=== PATIENT | female | born 1980 | race Caucasian/White ===

== ENCOUNTER 2016-12-29 16:43 | Emergency (ER) | payer OTHER ==
[~2016-12-29] VITALS: Ht 162.6 cm; Wt 57.4 kg
[~2016-12-29 16:43] MED LIST: ATARAX,VISTARIL25 MG PO; BUPRENORPHINE HC2 MG SL; IBUPROFEN800 MG PO; Subutex SL; ZOFRAN8 MG PO
[2016-12-29 17:19] LABS: HEMATOCRIT 35.9 % (36.0-46.0); MCHC 30.1 G/DL (30.0-36.0); MCV 73.1 FL (83-99); MEAN PLAT.VOLUME 9.7 uM^3 (9.5-12.4); PLATELET COUNT 248 K/uL (156-360); RBC DIS.WIDTH-CV 14.8 % (11.8-14.6); RBC DIS.WIDTH-SD 39.1 % (39-53); RED BLOOD COUNT 4.91 M/uL (3.80-5.20); WHITE BLOOD COUNT 7.7 K/uL (4.1-10.2)
[2016-12-29 17:22] LABS: CHLORIDE 103 mEq/L (99-109); POTASSIUM 3.5 mEq/L (3.7-5.4); SODIUM 136 mEq/L (136-147)
[2016-12-29 17:24] LABS: GLUCOSE 98 mg/dL (70-99)
[2016-12-29 17:25] LABS: ANION GAP 12 MEQ/L (2-14)
[2016-12-29 17:27] LABS: SERUM ETHYL ALCOHOL < 10 mg/dL
[2016-12-29 17:28] LABS: GFR ESTIMATE (CALCULATED) > 59 mL/min/
[2016-12-29 17:29] LABS: UREA NITROGEN (BUN) 16 mg/dL (9-23)
[2016-12-29 17:30] LABS: CREATINE KINASE 182 IU/L (1-294); TOTAL CK 182 IU/L (1-294)
[2016-12-29 17:37] LABS: QUANTITATIVE HCG < 4.0 MIU/ML
[2016-12-29 17:38] LABS: CK-MB 4.8 ng/mL (0.0-4.9)
[2016-12-29 18:03] VITALS: BP 133/82
== END 2016-12-29 18:27 | disposition home or self-care (01) ==
LOC: EME 16:43
PROVIDERS: Emergency Medicine
DX: F31.30 Bipolar disorder, current episode depressed, mild or moderate severity, unspecified (principal); S80.812A Abrasion, left lower leg, initial encounter; S80.811A Abrasion, right lower leg, initial encounter; X58.XXXA Exposure to other specified factors, initial encounter; F90.2 Attention-deficit hyperactivity disorder, combined type; F17.200 Nicotine dependence, unspecified, uncomplicated
CPT/HCPCS: 80048; 82550; 82553; 83605; 84702; 85027; 90837; 99281; 99284; G0480

== ENCOUNTER 2017-06-04 17:08 | Emergency (ER) | payer OTHER ==
[~2017-06-04] VITALS: Ht 162.6 cm; Wt 61.1 kg
[2017-06-04] MEDS ORDERED: BACTRIM,SEPT1 TABLET PO (19:09)
[2017-06-04] MEDS ORDERED: NORCO 5/3251 TABLET PO (19:09)
[2017-06-04 20:31] VITALS: BP 132/70
== END 2017-06-04 20:32 | disposition home or self-care (01) ==
LOC: EME 17:08
PROC: 0H9AXZZ Drainage of Inguinal Skin, External Approach (ICD-10-PCS; principal; 2017-06-04)
DX: L02.214 Cutaneous abscess of groin (principal); Z91.040 Latex allergy status; Z88.8 Allergy status to other drugs, medicaments and biological substances
CPT/HCPCS: 99281; 99283

== ENCOUNTER 2017-06-12 11:40 | Emergency (ER) | payer OTHER ==
[~2017-06-12] VITALS: Ht 162.6 cm; Wt 58.3 kg
[~2017-06-12 11:40] MED LIST changes: +BACTRIM,SEPT1 TABLET PO; +NORCO 5/3251 TABLET PO
[2017-06-12 12:36] LABS: HEMATOCRIT 41.2 % (36.0-46.0); MCH 26.8 PG (29.0-34.0); MCHC 32.5 G/DL (30.0-36.0); MCV 82.4 FL (83-99); MEAN PLAT.VOLUME 9.9 uM^3 (9.5-12.4); PLATELET COUNT 208 K/uL (156-360); RBC DIS.WIDTH-CV 13.5 % (11.8-14.6); RBC DIS.WIDTH-SD 40.4 % (39-53); WHITE BLOOD COUNT 5.6 K/uL (4.1-10.2)
[2017-06-12 12:47] LABS: CHLORIDE 107 mEq/L (99-109); POTASSIUM 4.5 mEq/L (3.7-5.4); SODIUM 143 mEq/L (136-147)
[2017-06-12 12:49] LABS: GLUCOSE 98 mg/dL (70-99)
[2017-06-12 12:51] LABS: ANION GAP 9 MEQ/L (2-14)
[2017-06-12 12:53] LABS: GFR ESTIMATE (CALCULATED) > 59 mL/min/
[2017-06-12 12:54] LABS: UREA NITROGEN (BUN) 15 mg/dL (9-23)
[2017-06-12] MEDS ORDERED: VIBRAMYCIN100 MG PO (13:17)
[2017-06-12] MEDS ORDERED: VENTOLIN HFA18 GM IH (13:18)
[2017-06-12 13:47] LABS: QUANTITATIVE HCG < 4.0 MIU/ML
[2017-06-12 14:09] VITALS: BP 89/64
== END 2017-06-12 14:12 | disposition home or self-care (01) ==
LOC: EME 11:40 → RME 11:40
DX: J40 Bronchitis, not specified as acute or chronic (principal); F90.9 Attention-deficit hyperactivity disorder, unspecified type; F32.9 Major depressive disorder, single episode, unspecified; F31.9 Bipolar disorder, unspecified; F17.200 Nicotine dependence, unspecified, uncomplicated; Z91.040 Latex allergy status; Z88.1 Allergy status to other antibiotic agents; Z88.8 Allergy status to other drugs, medicaments and biological substances
CPT/HCPCS: 71020; 80048; 84702; 85027; 94640; 99281; 99284; J1100

== ENCOUNTER 2017-07-25 14:13 | Emergency (ER) | payer OTHER ==
[~2017-07-25] VITALS: Ht 162.6 cm; Wt 55.2 kg
[~2017-07-25 14:13] MED LIST changes: +VENTOLIN HFA18 GM IH; +VIBRAMYCIN100 MG PO
[2017-07-25 14:57] LABS: ADD MIUA? YES; BILIRUBIN NEGATIVE; BLOOD SMALL; COLOR AMBER ((YELLOW)); GLUCOSE (STRIP) NEGATIVE; KETONES NEGATIVE; LEUKOCYTES LARGE; NITRITE POSITIVE; PROTEIN (STRIP) 100; SPECIFIC GRAVITY 1.016 (1.000-1.030)
[2017-07-25 15:06] LABS: BACTERIA RARE /HPF; EPITHELIAL CELLS RARE /HPF; MUCUS 1+ /LPF; UCUL ADDED? YES; WHITE BLOOD CELLS TNTC /HPF (0-5)
[2017-07-25] MEDS ORDERED: KEFLEX500 MG PO (15:11)
[2017-07-25] MEDS ORDERED: PYRIDIUM200 MG PO (15:14)
[2017-07-25 15:23] VITALS: BP 119/65
== END 2017-07-25 15:30 | disposition home or self-care (01) ==
LOC: EME 14:13
PROVIDERS: Physician Assistant Medical
DX: N39.0 Urinary tract infection, site not specified (principal); F32.9 Major depressive disorder, single episode, unspecified; F90.9 Attention-deficit hyperactivity disorder, unspecified type; F17.200 Nicotine dependence, unspecified, uncomplicated; Z91.040 Latex allergy status; Z88.1 Allergy status to other antibiotic agents; Z88.8 Allergy status to other drugs, medicaments and biological substances
CPT/HCPCS: 81003; 87077; 87086; 87186; 99281; 99284

== ENCOUNTER 2017-08-08 19:09 | Emergency (ER) | payer OTHER ==
[~2017-08-08] VITALS: Ht 162.6 cm; Wt 55.5 kg
[~2017-08-08 19:09] MED LIST changes: +KEFLEX500 MG PO; +PYRIDIUM200 MG PO
[2017-08-08 20:33] LABS: ADD MIUA? YES; BILIRUBIN LARGE; BLOOD TRACE; COLOR ORANGE ((YELLOW)); GLUCOSE (STRIP) NEGATIVE; KETONES NEGATIVE; LEUKOCYTES NEGATIVE; SPECIFIC GRAVITY 1.011 (1.000-1.030)
[2017-08-08 20:34] LABS: ICTOTEST POSITIVE
[2017-08-08 20:48] LABS: EOSINOPHIL (%) 1.6 % (0-5); EOSINOPHIL COUNT 0.1 K/uL (0-0.3); HEMATOCRIT 41.8 % (36.0-46.0); IMMATURE GRANULOCYTE (%) 0.4 % (0.0-0.7); INSTRUMENT ABS NEUTROPHIL CT 3.5 K/uL; LYMPHOCYTE COUNT 1.7 K/uL (1.0-2.8); MCV 81.6 FL (83-99); MONOCYTE (%) 5.7 % (3-12); MONOCYTE COUNT 0.3 K/uL (0-0.8); NEUTROPHIL (%) 62.1 % (45-76); NEUTROPHIL COUNT 3.5 K/uL (1.8-6.4); RBC DIS.WIDTH-CV 13.3 % (11.8-14.6); RED BLOOD COUNT 5.12 M/uL (3.80-5.20); WHITE BLOOD COUNT 5.6 K/uL (4.1-10.2)
[2017-08-08 20:50] LABS: RED BLOOD CELLS 0-5 /HPF (0-5); WHITE BLOOD CELLS 0-5 /HPF (0-5)
[2017-08-08 20:51] LABS: BACTERIA RARE /HPF; EPITHELIAL CELLS 1+ /HPF; MUCUS RARE /LPF
[2017-08-08 20:55] LABS: CHLORIDE 104 mEq/L (99-109); SODIUM 139 mEq/L (136-147)
[2017-08-08 20:57] LABS: GLUCOSE 97 mg/dL (70-99)
[2017-08-08 20:59] LABS: ANION GAP 8 MEQ/L (2-14)
[2017-08-08 21:01] LABS: GFR ESTIMATE (CALCULATED) > 59 mL/min/
[2017-08-08 21:02] LABS: UREA NITROGEN (BUN) 13 mg/dL (9-23)
[2017-08-08 21:07] LABS: TROP-I INTERPRETATION NEGATIVE; TROPONIN-I < 0.01 ng/mL (0.0-0.30)
[2017-08-08 21:29] LABS: IMM.PLATELET FRACTION 8.7 (1-7); PLAT.SUFFICIENCY ADEQUATE; PLATELET CLUMPS PRESENT - PLATELET COUNT APPEARS ADQ.; PLATELET COUNT UNABLE TO REPORT K/uL (156-360)
[2017-08-08 21:30] VITALS: BP 123/65
[2017-08-08] MEDS ORDERED: INDOCIN50 MG PO (21:44)
== END 2017-08-08 21:44 | disposition home or self-care (01) ==
LOC: EME 19:09
PROVIDERS: Emergency Medicine
DX: R07.9 Chest pain, unspecified (principal); F11.10 Opioid abuse, uncomplicated; F17.200 Nicotine dependence, unspecified, uncomplicated; F90.9 Attention-deficit hyperactivity disorder, unspecified type; F32.9 Major depressive disorder, single episode, unspecified; Z91.040 Latex allergy status; Z88.1 Allergy status to other antibiotic agents; Z88.8 Allergy status to other drugs, medicaments and biological substances
CPT/HCPCS: 80048; 81003; 84484; 85025; 93005; J1100